=== PATIENT | female | born 1980 | race Caucasian/White ===

== ENCOUNTER 2016-12-13 05:02 | Inpatient (IN) | payer OTHER ==
[2016-12-13 05:53] LABS: Hematocrit 41 % (35-47); Hemoglobin 14.2 g/dl (12.0-16.0); Mean Corpuscular HGB Conc 35 g/dl (31-36); Mean Corpuscular Hemoglobin 33 pg (27-31); Mean Corpuscular Volume 95 fL (80-97); Mean Platelet Volume 9 um3 (7.4-10.4); Red Cell Distribution Width 13 % (10.5-15); White Blood Count 15.1 10^3/ul (3.5-10.8)
[2016-12-13 07:14] LABS: Albumin 3.5 g/dL (3.2-5.2); BUN/Creatinine Ratio 10.5 (8-20); Calcium 9.4 mg/dL (8.6-10.3); EGFR African American 110.1 (>60); EGFR Non-African American 85.6 (>60); Globulin 2.6 g/dL (2-4); Potassium 3.7 mmol/L (3.5-5.0); Total Bilirubin 0.5 mg/dL (0.2-1.0); Total Protein 6.1 g/dL (6.4-8.9); Uric Acid 3.8 mg/dL (2.3-6.6)
[2016-12-13] MEDS ORDERED: ceFOXitin 2 GM IVPREMIX* 2 GM/50 ML BAG ONE (08:06)
[2016-12-13] MEDS ORDERED: Sodium Citrate/Citric Acid* 15 ML UDC ONE (08:06)
[2016-12-13] MEDS ORDERED: Morphine PF AMP (0.5MG/ML)* 5 MG/10 ML AMP ONE (08:37)
[2016-12-13] MEDS ORDERED: DiMENhydriNATE IV* 50 MG/ML VIAL IV PUSH PRN (09:15)
[2016-12-13] MEDS ORDERED: fentaNYL* 50 MCG/ML 2 ML VIAL (100 MCG VIAL) IV PRN (09:15)
[2016-12-13] MEDS ORDERED: Naloxone* 0.4 MG/ML 1 ML VIAL IV PRN (09:22)
[2016-12-13] MEDS ORDERED: Ketorolac INJ* 30 MG/ML 1 ML VIAL IV PRN (09:22)
[2016-12-13] MEDS ORDERED: Ondansetron INJ* 2 MG/ML VIAL IV PRN (09:22)
[2016-12-13] MEDS ORDERED: Nalbuphine* 20 MG/ML 1 ML VIAL IV PRN (09:22)
[2016-12-13] MEDS ORDERED: oxyCODONE/Acetamin 5/325 MG* TAB PO PRN ×2 (09:22→12:39)
[2016-12-13] MEDS ORDERED: Naloxone* 2 MG in NS 0.9% 250 ML* 250 ML IV PRN (09:22)
[2016-12-13] MEDS ORDERED: Phenylephrine IV* 40 MCG/ML 10 ML SYRINGE ONE (09:27)
[2016-12-13] MEDS ORDERED: OXYTOCIN* 10 UNITS/ML 1 ML VIAL ONE ×2 (09:27→09:37)
[2016-12-13] MEDS ORDERED: Ondansetron INJ* 2 MG/ML VIAL ONE (09:27)
[2016-12-13] MEDS ORDERED: Witch Hazel PAD* JAR TOPICAL PRN (12:39)
[2016-12-13] MEDS ORDERED: Dibucaine 1% 28.35 GM TUBE PR PRN (12:39)
[2016-12-13] MEDS ORDERED: Zolpidem TAB* 5 MG PO PRN (12:39)
[2016-12-13] MEDS ORDERED: Glycerin ADULT SUPP PR PRN (12:39)
[2016-12-13] MEDS: Docusate CAP* 100 MG PO SCH ×2 (19:48→20:44)
[2016-12-13] MEDS: Simethicone CHEW TAB* 80 MG PO SCH ×2 (19:49→20:44)
[2016-12-13] MEDS: Ibuprofen TAB* 600 MG PO PRN (20:44)
[2016-12-14] MEDS: Ibuprofen TAB* 600 MG PO PRN ×4 (03:35→23:06)
[2016-12-14 06:38] LABS: Hematocrit 32 % (35-47); Hemoglobin 11.3 g/dl (12.0-16.0); Mean Corpuscular HGB Conc 35 g/dl (31-36); Mean Corpuscular Hemoglobin 34 pg (27-31); Mean Corpuscular Volume 96 fL (80-97); Mean Platelet Volume 9 um3 (7.4-10.4); Red Blood Count 3.37 10^6/ul (4.0-5.4); Red Cell Distribution Width 13 % (10.5-15)
[2016-12-14] MEDS ORDERED: Ferrous Gluconate TAB* 324 MG TAB PO SCH (09:00)
[2016-12-14] MEDS: Simethicone CHEW TAB* 80 MG PO SCH ×4 (10:15→20:58)
[2016-12-14] MEDS: Docusate CAP* 100 MG PO SCH ×3 (10:15→20:58)
--- NOTE | 2016-12-14 12:09 | OP ---
DATE OF OPERATION: 12/13/16 - ROOM #113 DATE OF : 78 SURGEON: Shobha Torres MD AGENCY APPOINTMENTS SUPERVISOR: Rupal Sparks, nurse deputy prosecuting attorney. ANESTHESIOLOGIST: Dr. Frank. ANESTHESIA: Spinal. PRE-OP DIAGNOSIS: Category 2 heart tracing, remote from delivery 40 and 0 /7 weeks. POST-OP DIAGNOSIS: Category 2 heart tracing delivery 40 and 0/7 weeks, delivered. OPERATIVE PROCEDURE: Primary low transverse section. ESTIMATED BLOOD LOSS: 600 cc. FLUIDS: 2500 cc of crystalloid. URINE OUTPUT: 300 cc of clear yellow urine. FINDINGS: Revealed a vertex male infant with Apgars 8 at 1 minute and 9 at five minutes. Thick meconium. Weight was 4 pounds 14 ounces, male infant, Apgars 8 and 9. Placenta bed had normal appearance. Tubes and ovaries are normal in appearance. Placenta bed, normal appearance, manually extracted, abnormal umbilical cord with tight turns in the cord. Placenta without evidence of retained membranes or placental tissue. Uterine bed without evidence of placenta or retained membranes. COMPLICATIONS: None apparent. DISPOSITION: Stable to recovery room. DESCRIPTION OF PROCEDURE: The patient was taken to the OR. The spinal anesthesia was given. The abdomen was then prepped and draped in a sterile standard fashion after Anne was placed using standard sterile technique. The patient was identified with universal protocol for correct position, the patient and procedure. Anesthesia was tested to appropriate level. Anesthesia administration was made with scalpel 2 fingerbreadths above the pubic symphysis. This was carried down to the fascia. Fascia was scored in midline, extended laterally and superiorly using curved Regalado scissors. Fascia was then sharply and bluntly from the rectus muscle. The peritoneum was then entered bluntly and the incision was extended bluntly. Bladder blade was inserted. Lower uterine segment was identified. Bladder flap was created with blunt and sharp dissection. Incision was made in the lower uterine segment. This was carried down to the membranes. Incision was extended laterally and superiorly, bluntly. There was thick meconium noted on entry into the amniotic sac. The was delivered vertex. Anterior posterior shoulder delivered immediately. Of note, the cord was hyper-coiled resulting in what would be apparent true knots given the tightness of the coil. The cord was noted to be blanched. After milking of the cord, the cord was clamped and then cut. Cord gases were obtained. Infant was handed to the awaiting web specialist. Appropriate cord blood was obtained. Placenta was then manually extracted, noted to be intact with no abnormalities. It should be noted that given the tight nature of the coil and the cord, no arterial blood could be drawn. The uterus was left in situ. The uterine cavity was explored and noted to be free of any membranes or placental tissue. The hysterotomy site was clamped with Allis and then reapproximated using 0 Vicryl for two layers first layer running locked, second layer running imbricated. The ovaries were then palpated and noted to have normal palpation without masses. The colic gutters were lavaged. Hemostasis was assured. Hysterotomy site was visualized and noted to be hemostatic. Prior to the closure of the peritoneum, all sponge, needle, and instrument counts were correct. The peritoneum was then reapproximated using 3- 0 Vicryl in a running fashion. The subfascial area was visualized. Hemostasis assured, and the fascia was then reapproximated using 0 Vicryl x2. Subcutaneous area was visualized. Hemostasis was assured with Bovie coagulation. Skin itself was reapproximated using 4-0 Monocryl in a subcuticular fashion. Mastisol and Steri's were applied. All sponge, needle, instrument, and blade counts were correct throughout the case. The patient tolerated the procedure well and went to the recovery room in stable condition. [id number]/[facility] #: [id number] MTDD
[2016-12-15] MEDS: Acetaminophen TAB* 325 MG PO PRN (02:41)
[2016-12-15] MEDS: Ibuprofen TAB* 600 MG PO PRN ×2 (10:34→16:51)
[2016-12-15] MEDS: Simethicone CHEW TAB* 80 MG PO SCH ×4 (10:35→20:00)
[2016-12-15] MEDS: Docusate CAP* 100 MG PO SCH ×3 (10:35→20:00)
[2016-12-15] MEDS: oxyCODONE/Acetamin 5/325 MG* TAB PO PRN ×2 (11:29→20:00)
[2016-12-15 20:08] VITALS: BP 147/91
[2016-12-16] MEDS: Ibuprofen TAB* 600 MG PO PRN ×3 (00:41→15:01)
[2016-12-16] MEDS: oxyCODONE/Acetamin 5/325 MG* TAB PO PRN ×2 (00:59→07:38)
[2016-12-16] MEDS: Simethicone CHEW TAB* 80 MG PO SCH ×2 (07:38→15:01)
[2016-12-16] MEDS: Docusate CAP* 100 MG PO SCH ×2 (07:38→15:01)
[2016-12-16] MEDS: Acetaminophen TAB* 325 MG PO PRN (15:01)
== END 2016-12-16 18:49 | disposition home or self-care (01) | DRG 766 ==
LOC: MCHOBOUT 05:02 → MCHOB 06:58
PROVIDERS: ADMIT Obstetrics & Gynecology; ATTEND Obstetrics & Gynecology
PROC: 4A1HXCZ Monitoring of Products of Conception, Cardiac Rate, External Approach (ICD-10-PCS; 2016-12-13)
PROC: 10D00Z1 Extraction of Products of Conception, Low, Open Approach (ICD-10-PCS; principal; 2016-12-13 08:39)
DX: O48.0 Post-term pregnancy (principal); O77.0 Labor and delivery complicated by meconium in amniotic fluid; Z3A.40 40 weeks gestation of pregnancy; Z37.0 Single live birth; O76 Abnormality in fetal heart rate and rhythm complicating labor and delivery; O69.89X0 Labor and delivery complicated by other cord complications, not applicable or unspecified
CPT/HCPCS: 36415; 80053; 84550; 85025; 85027; 86850; 86900; 86901; 88307; A9270-GY; J0694; J1885; J2405; J2590

== ENCOUNTER 2019-07-04 22:54 | Inpatient (IN) | payer BC ==
[2019-07-05 01:48] LABS: Hematocrit 40 % (35-47); Hemoglobin 14.1 g/dL (12.0-16.0); Mean Corpuscular HGB Conc 35 g/dL (31-36); Mean Corpuscular Hemoglobin 32 pg (27-31); Mean Corpuscular Volume 91 fL (80-97); Mean Platelet Volume 8.3 fL (7.4-10.4); Platelet Count 277 10^3/uL (150-450); Red Blood Count 4.39 10^6 /uL (3.70-4.87); Red Cell Distribution Width 13 % (10-15); White Blood Count 16.9 10^3/uL (3.5-10.8)
[2019-07-05] MEDS ORDERED: Lactated Ringers 1000 ML Bag* 1,000 ML IV ONE ×2 (02:01→16:31)
[2019-07-05] MEDS ORDERED: Buffered Lidocaine 1% SYRIN* 1 ML/SYRINGE INTRADERM ONE (02:01)
--- NOTE | 2019-07-05 02:10 | HP ---
General Information - Reason for Visit Labor - General Information Maternal Age: 39 Grav: 4 Para: 1 SAB: 2 IEA: 0 Estimated Due Date: 07/03/19 Determined By: LMP Maternal Blood Type and Rh: B Positive - Results this Serology/RPR Result: Non-Reactive Rubella Result: Immune HBsAg Result: Negative HIV Result: Negative GBS Culture Result: Negative Past Medical History Delivery History: Hx C/Section - H/o IUGR , See Records Pertinent Past Medical History: See Records Pertinent Past Surgical History: See Records Pertinent Family History: See Records - Antepartal Records Antepartal Records: Reviewed, Complicated by: - desires trial of labor after section Review of Systems Constitutional: Uncomfortable CV Complaint: No Respiratory: Shortness of Breath: No Gastrointestinal: No Nausea/Vomiting Genitourinary: No Bleeding, No Leaking Fluid Musculoskeletal: Contractions Neurological: No Headache Movement: Normal Exam Allergies/Adverse Reactions: Allergies Adhesive Tape Allergy (Mild, Verified 07/05/19 00:11) Rash T: 98.4 BP: 149/89 Repeat BP : 137/85 P : 87 R :20 Lab Values - Entire Visit: Laboratory Tests 07/05/19 07/05/19 01:37 01:37 WBC 16.9 H RBC 4.39 Hgb 14.1 Hct 40 MCV 91 MCH 32 H MCHC 35 RDW 13 Plt Count 277 MPV 8.3 Blood Type B Positive - Measurements Height: 5 ft 4 in Weight: 164 lb Weight in lbs: [id number] Body Mass Index (BMI): 28.1 Pre- Weight: 128 lb Weight Gained This : 36 lbs and 0 ozs - Exam Breast: Breast Exam Deferred CVA: No CVA Tenderness Extremities: No Edema Heart: Normal Rhythm/Heart Sounds HEENT: No Significant Findings Lungs: Clear Bilaterally Rectal: Rectal Exam Deferred Reflexes: DTR 2+ Thyroid: No Thyromegaly - Abdominal Exam Abdomen Exam: Non-Tender - Ultrasound/Biophysical Profile Ultrasound Status: Bedside Exam Ultrasound Findings: vertex Targeted Exam Findings Cervical Exam: 1cm Effacement: 80% Station: -2 Presenting Part: Vertex Membrane Status: Intact EFM Findings - External Monitor Findings Baseline Heart Rate: 120 External Monitor Findings: Accelerations Present, No Pattern of Variable or Late Decelerations, Variability Moderate Contractions: Regular - Q2' Assessment/Plan - Assessment Pt 40 at 40 1/7 weeks with active labor. Pt with prior section for Cat II FHT with associated intrauterine growth restriction. Pt on continuous monitoring as she desires trial of labor after section. Pt has signed consent for trial of labor and accepts risks associated with trial of labor including but not limited to risk of uterine rupture less than 2 %, cerebral palsy,blood transfusion and risk of hysterectomy. - Obstetrical Risk Factors Obstetrical Risk Factors: Previous C/Section in Labor - Plan Plan: Admit - Anticipate Vaginal Delivery - Pt has signed consent form for trial of labor after section and is planning on epidural at appropriate time. Pt to have continuous monitoring and IV in place.
[2019-07-05 02:14] LABS: Urine Benzodiazepine Screen None Detected (None Detect); Urine Opiates Screen None Detected (None Detect)
[2019-07-05] MEDS ORDERED: Lactated Ringers 1000 ML Bag* 1,000 ML IV SCH ×4 (03:00→23:00)
[2019-07-05] MEDS ORDERED: Morphine 10 MG/ML VIAL (1 ml) IV ONE (07:56)
[2019-07-05] MEDS ORDERED: Promethazine INJ(RESTRICTED)* 25 MG/ML 1 ML VIAL IV ONE (07:58)
[2019-07-05] MEDS ORDERED: OBEPIDURAL* 250 ML EPIDURAL ONE (15:39)
[2019-07-05] MEDS ORDERED: Lactated Ringers 1000 ML Bag* 500 ML IV PRN ×2 (16:31)
[2019-07-05] MEDS ORDERED: Phenylephrine 40 MCG/ML SYRINGE IV PUSH PRN ×2 (16:31)
[2019-07-05] MEDS ORDERED: Famotidine TAB* 20 MG PO PRN (16:31)
[2019-07-05] MEDS ORDERED: Sodium Citrate/Citric Acid* 15 ML UDC PO PRN (16:31)
[2019-07-05] MEDS ORDERED: OBEPIDURAL* 250 ML EPIDURAL SCH (17:00)
[2019-07-05] MEDS ORDERED: Sodium Citrate/Citric Acid* 15 ML UDC ONE (21:21)
[2019-07-05] MEDS ORDERED: ceFOXitin 2 GM IVPREMIX* 2 GM/50 ML BAG ONE (21:21)
--- NOTE | 2019-07-05 22:10 | PN ---
Progress Note - Progress Note Date of Service: 07/05/19 Note: Pt has remained at 5cm for over 2hrs. Contractions are not adequate but I am concerned that this baby will not tolerated stronger or more frequent contractions given the recurrent, sometimes deep, variables decels she is having. We discussed the option to start pitocin but then there may be the need for a more urgent CS. She opted to proceed with repeat section. She declines BTL. We reviewed the risks including bleeding, infection, injury to nearby organs and painful recovery. Consent signed. Questions answered.
[2019-07-05] MEDS ORDERED: oxyCODONE TAB* 5 MG TAB PO PRN ×2 (22:45)
[2019-07-05] MEDS ORDERED: Methylergonovine INJ* 0.2 MG/ML 1ML AMP ONE (23:27)
[2019-07-05] MEDS ORDERED: HYDROmorphone INJ1* 1 MG/ML SYRINGE IV PRN (23:36)
[2019-07-05] MEDS ORDERED: Naloxone* 0.4 MG/ML 1 ML VIAL IV PRN (23:36)
[2019-07-06] MEDS ORDERED: diPHENhydraMINE IV* 50 MG/ML 1 ml VIAL (BENADRYL) IV PRN (02:44)
[2019-07-06] MEDS ORDERED: Nalbuphine* 10 MG/ML 1 ML VIAL IV PRN (02:46)
[2019-07-06] MEDS ORDERED: Ondansetron INJ* 2 MG/ML VIAL IV PRN (02:47)
[2019-07-06] MEDS: Ketorolac INJ* 30 MG/ML 1 ML VIAL IV PUSH PRN ×3 (03:10→15:15)
--- NOTE | 2019-07-06 04:24 | OP ---
DATE OF OPERATION: 07/05/19 - ROOM #117 DATE OF : 78 SURGEON: Aga Barrera MD MANAGER AGRICULTURAL: Arlene Wilkins CNM ANESTHESIA: Spinal. PRE-OP DIAGNOSES: Intrauterine gestation at 40 weeks 2 days, prior section, attempted vaginal after with category 2 heart tracing, remote from delivery. POST-OP DIAGNOSES: Intrauterine gestation at 40 weeks 2 days, prior section, attempted vaginal after with category 2 heart tracing, remote from delivery. OPERATIVE PROCEDURE: section. ESTIMATED BLOOD LOSS: 800 mL. FLUIDS: Crystalloid. DRAINS: Anne catheter. FINDINGS: Male infant. Apgars 8 and 9. Weight 6 pounds 14 ounces. Normal appearing uterus, ovaries, and tubes. Normal appearing placenta. COMPLICATIONS: None. DESCRIPTION OF PROCEDURE: After informed consent was signed, the patient was taken to the operating room where her spinal anesthesia was checked and noted to be adequate. She was prepped and draped in the dorsal supine position with a leftward tilt. She already had a Anne catheter in place and SCDs on her legs. A time-out was performed. A Pfannenstiel skin incision was then made with a scalpel and carried down to the underlying layer of fascia. The fascia was incised on either side of the midline and the fascial incision extended laterally with combination of sharp and blunt dissection. The inferior edge of the fascial incision was grasped with Francie clamps, tented up, and dissected down with a combination of sharp and blunt dissection. Then the superior edge of the fascial incision was grasped with Francie clamps, tented up, and dissected down with a combination of sharp and blunt dissection. The rectus muscles were in the midline, and the peritoneum was entered with a combination of sharp and blunt dissection. The peritoneal incision was extended laterally with blunt pressure. A bladder flap was created in the vesicouterine peritoneum with a Metzenbaum scissors. A bladder blade was then inserted and a transverse incision was made in the lower uterine segment with the scalpel. The incision was extended superiorly and inferiorly with blunt pressure. The 's head was noted to be in transverse presentation. The head was brought out of the pelvis and delivered through the uterine incision with fundal pressure followed by the shoulders and the rest of the body. After more than 1 minute, the cord was clamped x2 and cut, and the baby was handed to the glazing machine operator. Cord blood was collected. The placenta delivered with fundal massage and gentle cord traction and appeared to be intact. The uterus was exteriorized and cleared off clots and debris. The uterine incision was closed with 0 Vicryl in a running locked fashion with the second layer of suture imbricating the first. The abdomen was irrigated and the uterus was placed back into the abdominal cavity. The gutters were cleared off clots and debris. The uterine incision was inspected and good hemostasis was noted. The peritoneum was closed with 3-0 Vicryl in a running unlocked fashion. Good hemostasis was noted along the rectus muscles. The fascia was then closed with 0 Vicryl in a running unlocked fashion. The subcuticular layer was irrigated with soppy wet lap. Then the skin was closed with 4-0 Monocryl in a running subcuticular fashion. Then the incision was cleaned. Mastisol and Steri- Strips were placed. A dressing was placed and the patient was moved to the stretcher and taken to recovery room in stable condition. [id number]/[id number] #: [id number] QUINTEN
[2019-07-06] MEDS ORDERED: Ferrous Gluconate TAB* 324 MG TAB PO SCH (09:00)
[2019-07-06 09:09] LABS: ABS Lymphocytes 1.6 10^3/ul (1.0-4.8); ABS Monocytes 0.9 10^3/ul (0-0.8); ABS Neutrophils 11.2 10^3/ul (1.5-7.7); Eosinophil % 0.1 %; Hematocrit 36 % (35-47); Hemoglobin 12.3 g/dL (12.0-16.0); Lymphocyte % 11.9 %; Mean Corpuscular HGB Conc 34 g/dL (31-36); Mean Corpuscular Hemoglobin 32 pg (27-31); Mean Corpuscular Volume 92 fL (80-97); Platelet Count 249 10^3/uL (150-450); Red Blood Count 3.89 10^6 /uL (3.70-4.87); Red Cell Distribution Width 13 % (10-15); White Blood Count 13.7 10^3/uL (3.5-10.8)
[2019-07-06] MEDS: Simethicone TAB* 80 MG TAB.CHEW PO SCH ×4 (09:23→19:39)
[2019-07-06] MEDS: Docusate CAP* 100 MG PO SCH ×3 (09:23→19:39)
[2019-07-06] MEDS: Acetaminophen TAB* 325 MG PO PRN (16:24)
[2019-07-07] MEDS: Ketorolac INJ* 30 MG/ML 1 ML VIAL IV PUSH PRN (01:52)
[2019-07-07] MEDS: Simethicone TAB* 80 MG TAB.CHEW PO SCH ×4 (08:20→21:20)
[2019-07-07] MEDS: Acetaminophen TAB* 325 MG PO PRN ×4 (08:20→21:20)
[2019-07-07] MEDS: Docusate CAP* 100 MG PO SCH ×3 (08:20→21:20)
[2019-07-07] MEDS: Ibuprofen TAB* 600 MG PO PRN ×3 (08:20→21:21)
[2019-07-08] MEDS: Acetaminophen TAB* 325 MG PO PRN ×2 (03:33→08:14)
[2019-07-08] MEDS: Ibuprofen TAB* 600 MG PO PRN ×2 (03:33→09:59)
[2019-07-08 07:42] VITALS: BP 110/53
[2019-07-08] MEDS: Docusate CAP* 100 MG PO SCH (08:14)
[2019-07-08] MEDS: Simethicone TAB* 80 MG TAB.CHEW PO SCH (08:14)
== END 2019-07-08 11:52 | disposition home or self-care (01) | DRG 540 ==
LOC: MCHOBOUT 22:54 → MCHOB 07-05 01:17
PROVIDERS: ADMIT Obstetrics & Gynecology; ATTEND Obstetrics & Gynecology
PROC: 10907ZC Drainage of Amniotic Fluid, Therapeutic from Products of Conception, Via Natural or Artificial Opening (ICD-10-PCS; 2019-07-05)
PROC: 10H07YZ Insertion of Other Device into Products of Conception, Via Natural or Artificial Opening (ICD-10-PCS; 2019-07-05)
PROC: 10D00Z1 Extraction of Products of Conception, Low, Open Approach (ICD-10-PCS; principal; 2019-07-05 22:43)
DX: O48.0 Post-term pregnancy (principal); O66.41 Failed attempted vaginal birth after previous cesarean delivery; O99.344 Other mental disorders complicating childbirth; F41.8 Other specified anxiety disorders; O77.0 Labor and delivery complicated by meconium in amniotic fluid; O76 Abnormality in fetal heart rate and rhythm complicating labor and delivery; Z3A.40 40 weeks gestation of pregnancy; Z37.0 Single live birth
CPT/HCPCS: 36415; 80307; 85025; 85027; 86850; 86900; 86901; 88307; A9270-GY; G0480; J0694; J1885; J2210; J2270; J2550